=== PATIENT | female | born 1970 | race Caucasian/White ===

== ENCOUNTER → 2017-04-24 | Outpatient (CLI) | payer BC ==
--- NOTE | 2017-04-24 11:46 | WOMENS IMAGING REPORT ---
EXAM DESCRIPTION: BILAT SCREENING MAMMO W/CAD COMPLETED DATE/TIME: 04/24/2017 10:27 am REASON FOR STUDY: ROUTINE SCREENING; Z12.31 Z12.31 ENCNTR SCREEN MAMMOGRAM FOR MALIGNANT NEOPLASM O F LEONARDA COMPARISON: 2008, 2011 TECHNIQUE: Standard craniocaudal and mediolateral oblique views of each breast recorded using [employer] acquisition. LIMITATIONS: None. FINDINGS: No masses, calcifications or architectural distortion. No areas of suspicion. Read with the assistance of CAD. .[facility] - R2 Cenova Version 1.3 .[facility] - R2 Cenova Version 1.3 .[facility] - R2 Cenova Version 2.4 .[facility] [place] Cenova Version 2.4 .[facility] - R2 Strapper Operator Version 9.2 IMPRESSION: NORMAL MAMMOGRAM. BIRADS 1. BREAST DENSITY: b. There are scattered areas of fibroglandular density. BIRAD: 1 NEGATIVE RECOMMENDATION: ROUTINE SCREENING COMMENT: The patient has been notified of the results by letter per SA requirements. Additional no tification policies are in place for contacting patient with suspicious or incomplete findings. Quality ID #[id number]: The [employer] recommends an annual screening mammogram for women aged 40 years or over. This facility utilizes a reminder system to ensure that all patients receive reminder letters, and/or direct phone calls for appointments. This includes reminders for routine scr eening mammograms, diagnostic mammograms, or other Breast Imaging Interventions when appropriate. Th is patient will be placed in the appropriate reminder system. The [employer] (ACR) has developed recommendations for screening MRI of the breast s in certain patient populations, to be used in conjunction with mammography. Breast MRI surveillanc e may be appropriate for women with more than 20% lifetime risk of developing breast cancer as deter mined by genetic testing, significant family history of the disease, or history of mantle radiation f or Hodgkins Disease. ACR Practice Guidelines 2008. TECHNICAL DOCUMENTATION: FINDING NUMBER: (1) ASSESSMENT: (1) JOB ID: [id number] [employer]- All Rights Reserved
== END ==
LOC: WI 10:40
PROVIDERS: ATTEND Nurse Practitioner Acute Care
DX: Z12.31 Encounter for screening mammogram for malignant neoplasm of breast (principal)
CPT/HCPCS: 77067

== ENCOUNTER 2017-07-06 11:23 | Emergency (ER) | payer BC, MEDICAID ==
--- NOTE | 2017-07-06 12:08 | ER Document Report ---
ED Medical Screen (RME) - General Chief Complaint: Leg Pain Stated Complaint: LEG PAIN Time Seen by Provider: 07/06/17 12:04 Notes: Patient says that she began having pain and noted swelling of a vein of the left lower leg, proximally and laterally, just distal to the left knee joint yesterday. She is also noted that her left foot feels like it is asleep and she is felt lightheaded. She was at work when this started yesterday. 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 Has not had any chest pain or any shortness of breath. No history of blood clots. Patient's brother of a pulmonary embolus recently. History of asthma. Patient had a gallbladder removed in March. Smokes cigarettes. TRAVEL OUTSIDE OF THE [place] IN LAST 30 DAYS: No - Related Data Allergies/Adverse Reactions: No Known Allergies Allergy (Verified 07/06/17 11:24) Past Medical History - Social History Chew tobacco use (# tins/day): No Frequency of alcohol use: None Drug Abuse: None Renal/ Medical History: Denies: Hx Peritoneal Dialysis Physical Exam - Vital signs Vitals: Temp Pulse BP Pulse Ox 97.8 F 74 101/81 96 07/06/17 11:33 07/06/17 11:33 07/06/17 11:33 07/06/17 11:33 Course - Vital Signs Vital signs: Temp Pulse Resp BP Pulse Ox 97.8 F 74 101/81 96 07/06/17 11:33 07/06/17 11:33 07/06/17 11:33 07/06/17 11:33
[2017-07-06 12:28] LABS: ABSOLUTE BASOPHILS # (AUTO) 0.1 10^3/uL (0.0-0.2); ABSOLUTE EOSINOPHILS # (AUTO) 0.3 10^3/uL (0.0-0.6); ABSOLUTE LYMPHOCYTES (AUTO) 1.8 10^3/uL (0.5-4.7); ABSOLUTE MONOCYTES (AUTO) 0.4 10^3/uL (0.1-1.4); ABSOLUTE NEUT (AUTO) 3.7 10^3/uL (1.7-8.2); BASOPHILS % (AUTO) 0.9 % (0-2); EOSINOPHILS % (AUTO) 5.3 % (0-6); HEMATOCRIT 39.6 % (36.0-47.0); HEMOGLOBIN 13.7 g/dL (12.0-15.5); LYMPHOCYTES % (AUTO) 28.5 % (13-45); MEAN CORPUSCULAR HEMOGLOBIN 30.5 pg (27.0-33.4); MEAN CORPUSCULAR HGB CONC 34.5 g/dL (32.0-36.0); MEAN CORPUSCULAR VOLUME 88 fl (80-97); PLATELET COUNT 242 10^3/uL (150-450); RED BLOOD COUNT 4.48 10^6/uL (3.72-5.28); RED CELL DISTRIBUTION WIDTH 14.1 % (11.5-14.0); SEGMENTED NEUTROPHILS % (AUTO) 58.3 % (42-78); TOTAL CELLS COUNTED % (AUTO) 100 %; WHITE BLOOD COUNT 6.3 10^3/uL (4.0-10.5)
[2017-07-06 12:40] LABS: INTERNATIONAL RATION (INR) 0.85; PROTHROMBIN TIME 12.1 SEC (11.4-15.4)
[2017-07-06 12:43] LABS: ALANINE AMINOTRANSFERASE 22 U/L (9-52); ALBUMIN 3.8 g/dL (3.5-5.0); ALKALINE PHOSPHATASE 65 U/L (38-126); ANION GAP 9 (5-19); ASPARTATE AMINO TRANSFERASE 17 U/L (14-36); BILIRUBIN,DIRECT 0.2 mg/dL (0.0-0.4); BILIRUBIN,TOTAL 0.4 mg/dL (0.2-1.3); BLOOD UREA NITROGEN 15 mg/dL (7-20); CALCIUM 9.8 mg/dL (8.4-10.2); CARBON DIOXIDE 30 mmol/L (22-30); CHLORIDE 105 mmol/L (98-107); GLUCOSE 85 mg/dL (75-110); POTASSIUM 3.7 mmol/L (3.6-5.0); SODIUM 144.2 mmol/L (137-145); TOTAL PROTEIN 6.7 g/dL (6.3-8.2)
--- NOTE | 2017-07-06 15:18 | RADIOLOGY REPORT (SQ) ---
EXAM DESCRIPTION: CTA CHEST COMPLETED DATE/TIME: 07/06/2017 3:06 pm REASON FOR STUDY: Pulmonary embolism chest pain COMPARISON: None. TECHNIQUE: CT scan of the chest performed using helical scanning technique with dynamic intravenous contrast injection. Images reviewed with lung, soft tissue and bone windows. Reconstructed coronal and sagittal MPR images reviewed. Additional 3 dimensional post-processing performed to develop Maximal Intensity Projection images (TN P). All images stored on PACS. All CT scanners at this facility use dose modulation, iterative reconstruction, and/or weight based d osing when appropriate to reduce radiation dose to as low as reasonably achievable (ALARA). [facility]: Dose Right [facility]: CareDose [facility]: Dose Right [facility]: Teradose 4D [facility]: Datalink CONTRAST TYPE AND DOSE: contrast/concentration: Isovue 370.00 mg/ml; Total Contrast Delivered: 82.0 ml; Total Saline Delivered: 110.0 ml Contrast bolus adequate for pulmonary arteries and aorta. RENAL FUNCTION: Creatinine 0.72 RADIATION DOSE: CT Rad equipment meets quality standard of care and radiation dose reduction techniq ues were employed. CTDIvol: 22.6 - 39.7 mGy. DLP: 822 mGy-cm. . LIMITATIONS: None. FINDINGS: LUNGS AND PLEURA: No masses, infiltrates, pneumothorax. No pleural effusions, calcificati ons. AORTA AND GREAT VESSELS: No aneurysm. Contrast bolus not optimized for the aorta. HEART: No pericardial effusion. No significant coronary artery calcifications. PULMONARY ARTERIES: No emboli visualized in the main pulmonary arteries or the segmental branches. HILAR AND MEDIASTINAL STRUCTURES: No identified masses or abnormal nodes. HARDWARE: None in the chest. UPPER ABDOMEN: No significant findings. Limited exam. THYROID AND OTHER SOFT TISSUES: No masses. No adenopathy. BONES: No acute or significant finding. 3D MIPS: Confirm above findings. OTHER: No other significant finding. IMPRESSION: No acute changes. COMMENT: Quality ID # [id number]: Final reports with documentation of one or more dose reduction techniques (e.g., Automated exposure control, adjustment of the mA and/or kV according to patient size, use of iterative reconstruction technique) TECHNICAL DOCUMENTATION: JOB ID: [id number] [employer]- All Rights Reserved Reading location - IP/workstation name: [email or web address]
--- NOTE | 2017-07-06 15:27 | RADIOLOGY REPORT (SQ) ---
EXAM DESCRIPTION: VENOUS UNILATERAL LOWER COMPLETED DATE/TIME: 07/06/2017 3:12 pm REASON FOR STUDY: Left lower leg vein painful and swollen COMPARISON: None. TECHNIQUE: Dynamic and static dockery scale and color images acquired of the left leg venous system. Se lected spectral images acquired with additional compression and augmentation maneuvers. The contralat eral common femoral vein and saphenofemoral junction were also imaged. Images stored on PACS. LIMITATIONS: None. FINDINGS: LEFT COMMON FEMORAL: Normal phasicity, compression and augmentation. No visualized echogenic material on g ray scale. No defects on color images. FEMORAL: Normal compression and augmentation. No visualized echogenic material on dockery scale. No defe cts on color images. POPLITEAL: Normal compression, augmentation. No visualized echogenic material on dockery scale. No defec ts on color images. CALF VESSELS: Normal compression, augmentation. No visualized echogenic material on dockery scale. No de fects on color images. GSV and SSV: Normal compression, augmentation. No visualized echogenic material on dockery scale. No def ects on color images. ANY DEEP VENOUS INSUFFICIENCY: Not evaluated. ANY EVIDENCE OF POPLITEAL CYST: No. OTHER: No other significant finding. RIGHT COMMON FEMORAL VEIN AND SAPHENOFEMORAL JUNCTION: Normal phasicity, compression and augmentation. No visualized echogenic material on dockery scale. No de fects on color images. IMPRESSION: NO EVIDENCE OF DVT OR SVT IN THE LEFT LEG. TECHNICAL DOCUMENTATION: JOB ID: [id number] [employer]- All Rights Reserved Reading location - IP/workstation name: [email or web address]
--- NOTE | 2017-07-06 15:51 | ER Document Report ---
ED Extremity Problem, Lower - General Chief Complaint: Leg Pain Stated Complaint: LEG PAIN Time Seen by Provider: 07/06/17 12:04 Notes: History of complain-47 years old female with a family history of pulmonary embolism and sudden . That is her brother at 40 . Had a cholecystectomy done couple of weeks ago. Noted left lower extremity swelling therefore concerned and came to the ED. She also gets leg cramps on and off prior to this. For a long time. Denies any difficulty in breathing. Denies any other constitutional symptoms. REVIEW OF SYSTEMS: CONSTITUTIONAL : Denies fever, chills, or sweats. Denies recent illness. EENT: Denies eye, ear, throat, or mouth pain or symptoms. Denies nasal or sinus congestion or discharge. Denies throat, tongue, or mouth swelling or difficulty swallowing. CARDIOVASCULAR: Denies chest pain. Denies palpitations or racing or irregular heart beat. Denies ankle edema. RESPIRATORY: Denies cough, cold, or chest congestion. Denies shortness of breath, difficulty breathing, or wheezing. GASTROINTESTINAL: Denies abdominal pain or distention. Denies nausea, vomiting , or diarrhea. Denies blood in vomitus, stools, or per rectum. Denies black, tarry stools. Denies constipation. GENITOURINARY: Denies difficulty urinating, painful urination, burning, frequency, blood in urine, or discharge. FEMALE GENITOURINARY: Denies vaginal bleeding, heavy or abnormal periods, irregular periods. Denies vaginal discharge or odor. MUSCULOSKELETAL: Denies back or neck pain or stiffness. Denies joint pain or swelling. SKIN: Denies rash, lesions or sores. HEMATOLOGIC : Denies easy bruising or bleeding. LYMPHATIC: Denies swollen, enlarged glands. NEUROLOGICAL: Denies confusion or altered mental status. Denies passing out or loss of consciousness. Denies dizziness or lightheadedness. Denies headache. Denies weakness or paralysis or loss of use of either side. Denies problems with gait or speech. Denies sensory loss, numbness, or tingling. Denies seizures. PSYCHIATRIC: Denies anxiety or stress. Denies depression, suicidal ideation, or homicidal ideation. ALL OTHER SYSTEMS REVIEWED AND NEGATIVE. PHYSICAL EXAMINATION: GENERAL: Well-appearing, well-nourished and in no acute distress. Morbidly obese HEAD: Atraumatic, normocephalic. EYES: Pupils equal round and reactive to light, extraocular movements intact, conjunctiva are normal. ENT: Nares patent, oropharynx clear without exudates. Moist mucous membranes. NECK: Normal range of motion, supple without lymphadenopathy LUNGS: Breath sounds clear to auscultation bilaterally and equal. No wheezes rales or rhonchi. HEART: Regular rate and rhythm without murmurs ABDOMEN: Soft, nontender, nondistended abdomen. No guarding, no rebound. No masses appreciated. Female : deferred Musculoskeletal: Normal range of motion, no pitting or edema. No cyanosis. Mild tenderness over the left calf muscle noted NEUROLOGICAL: Cranial nerves grossly intact. Normal speech, normal gait. Normal sensory, motor exams PSYCH: Normal mood, normal affect. SKIN: Warm, Dry, normal turgor, no rashes or lesions noted. Dictation was performed using [employer] voice recognition software TRAVEL OUTSIDE OF THE [place]. IN LAST 30 DAYS: No - HPI Patient complains to provider of: Pain. No: Altered sensation, Injury, Swelling , Other Location: Leg. No: Ankle, Back, Buttock, Foot, Hip, Knee, Thigh, Great Toe, 2nd Toe, 3rd Toe, 4th Toe, 5th Toe Occurred: Yesterday Where: Home. No: Indoors, Neighbor's, Alf, Outdoors, Public place, School, Sports, Work, Other Onset/Duration: Gradual Quality of pain: Achy. denies: No pain, Burning, Cramping, Dull, Fullness, Pressure, Sharp, Stabbing, Throbbing, Other Severity: Moderate Pain Level: 3 Associated symptoms: denies: Chest pain, Chills, Dizzy, Fainting, Fever, Gillespie a crack, Gillespie a pop, Hurts to breath, Painful ambulation, Rapid heart rate, Seizure, Short of breath, Sweaty, Unable to bear weight, Weak, Other Exacerbated by: denies: Nothing, Hanging down, Movement, Walking, Other Relieved by: denies: Nothing, Elevation, Ice, Rest, Other - Related Data Allergies/Adverse Reactions: No Known Allergies Allergy (Verified 07/06/17 11:24) Past Medical History - Social History Smoking Status: Current Every Day Smoker Chew tobacco use (# tins/day): No Frequency of alcohol use: None Drug Abuse: None Family History: Reviewed & Not Pertinent Patient has suicidal ideation: No Patient has homicidal ideation: No Pulmonary Medical History: Reports: Hx Asthma Malignancy Medical History: Denies: None, Hx Bone Cancer, Hx Brain Cancer, Hx Breast Cancer, Hx Cervical Cancer, Hx Colorectal Cancer, Hx Leukemia, Hx Liver Cancer, Hx Lung Cancer, Hx Lymphoma, Hx Ovarian Cancer, Hx Pancreatic Cancer, Hx Renal (Kidney) Cancer, Hx Skin Cancer, Other Past Surgical History: Reports: Hx Cholecystectomy, Hx Tonsillectomy, Hx Tubal Ligation Review of Systems - Review of Systems Constitutional: denies: No symptoms reported, See HPI, Chills, Diaphoresis, Fever, Malaise, Weakness, Other, Weight gain, Weight loss, Recent illness EENT: denies: No symptoms reported, See HPI, Eye pain, Eye discharge, Blurred vision, Tearing, Double vision, Ear pain, Ear discharge, Nose pain, Nose congestion, Nose discharge, Sinus pressure, Sinus discharge, Throat pain, Difficulty swallowing, Throat swelling, Mouth pain, Mouth swelling, Dental problem, Vertigo, Other Cardiovascular: denies: No symptoms reported, See HPI, Chest pain, Palpitations , Heart racing, Orthopnea, Dyspnea, Syncope, Dizziness, Lightheaded, Edema, Other, Paroxysmal Nocturnal Dysp Respiratory: denies: No symptoms reported, See HPI, Cough, Hurts to breathe, Hemoptysis, Short of breath, Sputum, Stridor, Wheezing, Other Gastrointestinal: denies: No symptoms reported, See HPI, Abdomen distended, Abdominal pain, Diarrhea, Nausea, Vomiting, Constipation, Blood streaked bowels , Poor appetite, Poor fluid intake, Blood in vomit, Black stools, Rectal bleeding, Last bowel movement, Fecal incontinence, Other Genitourinary: denies: No symptoms reported, See HPI, Burning, Dysuria, Discharge, Frequency, Flank pain, Hematuria, Incontinence, Pain, Urgency, Retention, Other Female Genitourinary: denies: No symptoms reported, See HPI, Last menstrual period, , Post menopausal, Heavy/abnormal periods, Irregular period, Vaginal bleeding, Vaginal discharge, Vaginal odor, Painful intercourse, Other Musculoskeletal: See HPI Skin: denies: No symptoms reported, See HPI, Change in color, Change in hair/ nails, Dryness, Lesions, Lumps, Rash, Other Neurological/Psychological: denies: No symptoms reported, See HPI, Confusion, Dementia, Depression, Hallucinations, Anxiety, Homicidal ideation, Sensory change, Weakness, Gait changes, Loss of power, Paralysis, Seizure, Lost consciousness, Headaches, Speech impairment, Numbness, Suicidal ideation, Tingling, Tremor, Other Physical Exam - Vital signs Vitals: Temp Pulse BP Pulse Ox 97.8 F 74 101/81 96 07/06/17 11:33 07/06/17 11:33 07/06/17 11:33 07/06/17 11:33 - Notes Notes: Dictated Course - Vital Signs Vital signs: Temp Pulse Resp BP Pulse Ox 98.1 F 72 16 100/80 97 07/06/17 16:23 07/06/17 16:23 07/06/17 16:23 07/06/17 16:23 07/06/17 16:23 - Laboratory Result Diagrams: 07/06/17 12:15 07/06/17 12:15 Laboratory results interpreted by me: 07/06/17 12:15 RDW 14.1 H - Diagnostic Test Radiology reviewed: Reports reviewed - CT of the chest came back negative ultrasound of the leg came back negative. Reported by radiologist Discharge - Discharge Clinical Impression: Family history of pulmonary embolism, Leg pain, left Condition: Fair Disposition: HOME, SELF-CARE Instructions: Leg Pain Nonspecific ([facility]), Possible Evolving Leg DVT ([facility]) Prescriptions: Diclofenac Sodium 75 mg PO BID #20 tablet.
[2017-07-06 16:24] VITALS: BP 100/80
== END 2017-07-06 16:23 | disposition home or self-care (01) ==
LOC: ER 11:23
DX: M79.605 Pain in left leg (principal); R25.2 Cramp and spasm; F17.200 Nicotine dependence, unspecified, uncomplicated; J45.909 Unspecified asthma, uncomplicated; Z82.49 Family history of ischemic heart disease and other diseases of the circulatory system; Z90.49 Acquired absence of other specified parts of digestive tract
CPT/HCPCS: 36415; 71275; 80053; 85025; 85610; 93971; 99284

== ENCOUNTER → 2019-09-22 | Outpatient (CLI) | payer BC, OTHER ==
[2019-09-22 15:47] LABS: A TYPE INFLUENZA AG NEGATIVE (NEGATIVE); B INFLUENZA AG NEGATIVE (NEGATIVE)
[2019-09-22 16:13] VITALS: BP 120/75
--- NOTE | 2019-09-22 16:13 | ER RDC ASSESSMENT REPORT ---
Intake - In the Last 14 days Have you traveled outside [place]?: No Have you been in close contact with someone CONFIRMED: Yes Worked in Healthcare?: No - Symptoms Subjective Fever([place] feverish): No Chills: No Muscule Aches: Yes Runny Nose: Yes Sore Throat: Yes Cough (New or worsening chronic cough): Yes Shortness of breath: No Nausea or Vomiting: Yes Headache: Yes Abdominal Pain: No Diarrhea(3 or more loose stools in last 24 hours): No - Do you have any of the following Chronic lung disease: Asthma or emphysema or COPD: Yes Chronic Lung Disease Comment: History of COPD Cystic Fibrosis: No Diabetes: No High Blood Pressure: No Cardiovascular Disease: No Chronic Kidney Disease: No Chronic Liver Disease: No Chronic blood disorder like Sickle Cell Disease: No Weak immune system due to disease or medication: No Neurologic condition that limits movement: No Developmental delay - Moderate to Severe: No Recent (within past 2 weeks) or current : No Morbid Obesity (>100 pounds over ideal weight): No - Objective Temperature: 98.0 F Pulse Rate: 73 Respiratory Rate: 20 Blood Pressure: 120/75 O2 Sat by Pulse Oximetry: 95 Objective: Given above, testing performed: If Testing Performed: Test Specimen Type Sent to General - General Information source: Patient Notes: Patient here at [facility] for COVID testing reports a travel to [place] over September 11 weekend father in ICU and 3 family members have tested positive on September 08. Started having symptoms last week on September 13. Specifically muscle aches cramping runny nose sore throat cough. - Related Data Allergies/Adverse Reactions: No Known Allergies Allergy (Verified 07/06/17 11:24) Past Medical History - Social History Smoking Status: Current Every Day Smoker Smoking Education Provided: Yes Family History: Reviewed & Not Pertinent Pulmonary Medical History: Reports: Hx Asthma Renal/ Medical History: Denies: Hx Peritoneal Dialysis Malignancy Medical History: Denies: Hx Bone Cancer, Hx Brain Cancer, Hx Breast Cancer, Hx Cervical Cancer, Hx Colorectal Cancer, Hx Leukemia, Hx Liver Cancer, Hx Lung Cancer, Hx Lymphoma, Hx Ovarian Cancer, Hx Pancreatic Cancer, Hx Renal (Kidney) Cancer, Hx Skin Cancer Past Surgical History: Reports: Hx Cholecystectomy, Hx Tonsillectomy, Hx Tubal Ligation Physical Exam - General General appearance: Appears well, Alert In distress: None Notes: PHYSICAL EXAMINATION: GENERAL: Well-appearing and in no acute distress. HEAD: Atraumatic, normocephalic. EYES: sclera anicteric, conjunctiva are normal. ENT: nares patent. Moist mucous membranes. NECK: Normal range of motion, supple without lymphadenopathy LUNGS: CTAB and equal. No wheezes rales or rhonchi. Resp even and unlabored. Lung sounds clear. HEART: Regular rate and rhythm without murmurs ABDOMEN: Soft, nontender, normal bowel sounds, no guarding. EXTREMITIES: No cyanosis. NEUROLOGICAL: Normal speech. PSYCH: Normal mood, normal affect. SKIN: Warm, Dry, normal turgor, Diagnostic Results Laboratory Results: 09/22/19 13:45 Throat Throat Culture - Pending Influenza A (Rapid) NEGATIVE (NEGATIVE) 09/22/19 13:50 Influenza B (Rapid) NEGATIVE (NEGATIVE) 09/22/19 13:50 Group A Strep Rapid NEGATIVE (NEGATIVE) 09/22/19 13:50 Patient informed of negative rapid strep negative rapid flu results. Pending strep culture pending cover testing results. Patient provided instructions regarding COVID to include: As a person under investigation for Covid 19, the [place] department of Health and Human Services, division of public health advises you to adhere to the following guidance until your test results are reported to you. If your test result is positive, you will receive additional information from your provider and your local health department at that time. Remain at home until you are cleared by the health provider or public health authorities. Keep a log of visitors to your home, notify any visitors to your home of your isolation status. If you plan to move to a new address or leave the [facility], notify the local health department in your County. Call your doctor or seek care if you have an urgent medical need. Before seeking medical care, call ahead to get instructions from the provider before arriving at the medical office clinic or hospital. Notify them that you are being tested for the virus that causes Covid 19 so that arrangements can be made, as necessary, to prevent transmission to others in the healthcare setting. Next, notify the local health department in your county. If a medical emergency arises and you need to call 911, inform the first responders that you are being tested for the virus that causes Covid 19. Next, notify the local health department in your county. Patient Education/Counseling Counseling/Education: Patient presents with upper respiratory symptoms worrisome for possible Covid 19. Patient does not have emergency worring symptoms such as difficulty breathing, shortness of breath, chest pain, pressure, confusion or cyanosis. Patient appears suitable for discharge. Patient instructed to follow-up with PCP or urgent care for continued symptoms to ED for persistent or worsening symptoms patient's vital signs are stable and patient is nontoxic in appearance. Good return precautions have been discussed with patient, patient verbalized understanding and is agreeable with discharge plan of care at this time. RDC Discharge - Discharge Clinical Impression: COVID - 19 SCREENING Upper respiratory infection Qualifiers: URI type: unspecified URI Qualified Code(s): J06.9 - Acute upper respiratory infection, unspecified Condition: Stable Disposition: Home; Selfcare
== END ==
LOC: RDC 13:01
PROVIDERS: ATTEND Nurse Practitioner Family
DX: J06.9 Acute upper respiratory infection, unspecified (principal); Z20.828 Contact with and (suspected) exposure to other viral communicable diseases; R05 Cough; J02.9 Acute pharyngitis, unspecified; R09.89 Other specified symptoms and signs involving the circulatory and respiratory systems; M79.10 Myalgia, unspecified site; R11.0 Nausea; R51 Headache; J45.909 Unspecified asthma, uncomplicated; F17.200 Nicotine dependence, unspecified, uncomplicated
CPT/HCPCS: 87070; 87880; 87635; 87804; 99201; 99211; C9803